=== PATIENT | male | born 1930 | race Caucasian/White ===

== ENCOUNTER 2016-11-13 12:01 | Emergency (ER) | payer OTHER, MEDICARE ==
[~2016-11-13] VITALS: Ht 182.9 cm; Wt 78.0 kg
[~2016-11-13 12:01] MED LIST: BACTRIM DS 8001 TAB PO; CARBIDOPA-LEVO1 EAC7 PO; CEFUROXIME250 M1 PO; CEPHALEXIN500 M3 PO; CIPROFLOXACIN500 M2 PO; CLEOCIN HCL300 M1 PO; COUMADIN 5 MG TA5 MG PO; ELIQUIS2.5 M1 PO; FLAGYL250 M1 PO; LOVENOX80 MG/0.8 SC; MACROBID 100 M100 MG PO; MACRODANTIN50 M1 PO; METOPROLOL SUCC25 M1 PO; MIRALAX17 GM PO; RAPAFLO8 M1 PO; SENNA-S 50 MG-81 TAB PO; SINEMET 25-1001 EACH PO; VESICARE5 M1 PO; WARFARIN SODIUM3 M1 PO
[2016-11-13 12:45] LABS: ABSOLUTE BASOPHIL COUNT 0 /CUMM (0.0-0.2); ABSOLUTE EOSINOPHIL COUNT 0.3 /CUMM (0.0-0.7); ABSOLUTE GRANULOCYTE CT 4.4 /CUMM (1.4-6.5); ABSOLUTE LYMPH COUNT 1.3 /CUMM (1.2-3.4); ABSOLUTE MONOCYTE COUNT 0.4 /CUMM (0.10-0.60); BASOPHIL % 0.2 % (0.0-2.0); EOSINOPHIL % 4.1 % (0-5); MEAN CORPUSCULAR HGB 31.5 PG (27.0-31.0); MEAN CORPUSCULAR HGB CONC 32.8 G/DL (33.0-37.0); MEAN PLATELET VOLUME 7.2 FL (7.4-10.4); PLATELET COUNT 163 /CUMM (130-400); RBC DISTRIBUTION WIDTH 13.4 % (11.5-14.5); RED BLOOD CELL CT 4.79 /CUMM (4.70-6.10); WHITE BLOOD CELL COUNT 6.4 /CUMM (4.8-10.8)
--- NOTE | 2016-11-13 12:46 | ED HEADACHE COMPLAINT ---
History of Present Illness General Chief Complaint: Headache Stated Complaint: BIBA HEADACHE Source: patient, family () Exam Limitations: unable to give history Vital Signs & Intake/Output Vital Signs & Intake/Output Vital Signs Date Time Temp Pulse Resp B/P Pulse O2 O2 Flow FiO2 Ox Delivery Rate 11/13 1432 97.1 70 18 115/64 97 11/13 1220 98.5 77 18 108/62 97 Room Air Allergies Coded Allergies: Penicillins (Intermediate, RASH 04/15/16) Reconcile Medications Apixaban (Eliquis) 2.5 MG TABLET 1 TAB PO BID BLOOD THINNER (Reported) Carbidopa/Levodopa (Sinemet 25-100 MG Tablet) 1 EACH TABLET 0.5 TAB PO FOUR TIMES A DAY DIRECTED (Reported) Metoprolol Succinate 25 MG TAB 1 TAB PO DAILY DIRECTED (Reported) Silodosin (Rapaflo) 8 MG CAPSULE 1 CAP PO AT BEDTIME INCONTINENCE (Reported) Solifenacin Succinate (Vesicare) 5 MG TABLET 1 TAB PO AT BEDTIME URINARY INCONTINENCE (Reported) Triage Note: BIBA FROM HOME, PER EMS AND , PT HAS HAD DIARRHEA X 2 DAYS, WITH DARK URINE, HEADACHE TODAY. 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 ALSO IS BED BOUND EXCEPT FOR LIFT ASSIST TO CHAIR. Triage Nurses Notes Reviewed? yes HPI: this patient is an 86-year-old male with past medical history including Parkinson's, hypertension, and urinary incontinence who presented to the emergency department today brought in by his for evaluation of headache. She reported over the last week he has had approximately 2 episodes of nonbloody diarrhea. She has also noted that his urine has been dark. She reported that today he indicated that his head was hurting. He has not had any fevers or chills. No vomiting and no other complaints. (ALEXA BREWSTER,DANILO) Past History Travel History Traveled to [place] past 21 day No Medical History Any Pertinent Medical History? 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 FH: Parkinson's disease MOTHER (HEART ATTACK AT AGE 94). FHx: uterine cancer BROTHER (PTOSIS). Asif's palsy Hx Contributory? No (DANILO LIU PA-C) Review of Systems Review of Systems Constitutional: Reports: no symptoms. Gastrointestinal/Abdominal: Reports: see HPI. Genitourinary: Reports: see HPI. Neurological/Psychological: Reports: see HPI. Comments unable to obtain full review of systems due to this patient's underlying dementia. (DANILO LIU PA-C) Physical Exam Physical Exam Cranial Nerves: normal hearing, PERRL, no facial droop. Comments: Well-developed well-nourished person in no acute distress HEENT: Normal EENT exam, head normocephalic, moist mucous membranes PERRLA bilaterally Neck: Supple, no lymphadenopathy Back: Normal inspection Cardiovascular: Regular rate and rhythm with no murmurs, rubs, or gallops Respiratory: Chest nontender. No respiratory distress. Breath sounds clear to auscultation bilaterally with no wheezes, rales, rhonchi Abdomen: Soft, nontender and nondistended. No organomegaly. No peritoneal signs. No rebound or guarding. Normoactive bowel sounds Extremity: Normal and equal pulses. No edema Neuro: Alert, cranial nerves II through XII grossly intact. Skin: No appreciable rash on exposed skin, skin is warm and dry. Psych: Mood and affect is flat Core Measures Severe Sepsis Present: No Septic Shock Present: No (DANILO LIU PA-C) Progress Differential Diagnosis: carotid dissection, cav sinus thromb, cluster [place], encephalitis, IC mass/tumor, intracranial Hem., meningitis, migraine [place], musculoskeletal pain, sinusitis, SSS thrombosis, subarach. Hem., tension [place], temporal arteritis, viral cephalgia, influenza Plan of Care: Orders Procedure Date/time Status Heart Healthy Diet 11/13 D Active LACTIC ACID 11/13 1518 Active CULTURE,URINE 11/13 1218 Active BLOOD CULTURE 11/13 1218 Active URINALYSIS 11/13 121 Active TROPONIN LEVEL 11/13 1217 Complete LIPASE 11/13 1217 Complete LACTIC ACID 11/13 1217 Complete DIRECT BILIRUBIN 11/13 1217 Complete COMPREHENSIVE METABOLIC PANEL 11/13 1217 Complete CBC WITHOUT DIFFERENTIAL 11/13 1217 Complete AMYLASE 11/13 1217 Complete EKG 11/13 1217 Active Laboratory Tests 11/13/16 1234: Anion Gap 6, Estimated GFR > 60, BUN/Creatinine Ratio 17.5, Glucose 71, Lactic Acid 2.2 H, Calcium 9.9, Total Bilirubin 0.7, Direct Bilirubin 0.4, AST 21, ALT 33, Alkaline Phosphatase 63, Troponin I < 0.01, Total Protein 7.0, Albumin 3.8, Globulin 3.2, Albumin/Globulin Ratio 1.2, Amylase 37, Lipase 38, CBC w Diff NO MAN DIFF REQ, RBC 4.79, MCV 96.0 H, MCH 31.5 H, RDW 13.4, MPV 7.2 L, Gran % 69.0, Lymphocytes % 20.0 L, Monocytes % 6.7, Eosinophils % 4.1, Basophils % 0.2 , Absolute Granulocytes 4.4, Absolute Lymphocytes 1.3, Absolute Monocytes 0.4, Absolute Eosinophils 0.3, Absolute Basophils 0, PUBS MCHC 32.8 L Microbiology 11/13 1245 BLOOD: Blood Culture - RECD 11/13 1234 BLOOD: Blood Culture - RECD 11/13 1217 URINE ROUT: Urine Culture - ORD Diagnostic Imaging: Viewed by Me: CT Scan. Discussed w/RAD: CT Scan. Radiology Impression: PATIENT: CHARLIE MOORE PRESENT AGE: 86 PATIENT ACCOUNT NO: [id number] : 31 LOCATION: [facility] ORDERING PHYSICIAN: DANILO LIU PA-C SERVICE DATE: 11/13/16-8 EXAM TYPE: CAT - CT HEAD WO IV CONTRAST EXAMINATION: CT HEAD WITHOUT CONTRAST CLINICAL INFORMATION: Evaluate for intracranial hemorrhage COMPARISON: CT head dated TECHNIQUE: Contiguous axial imaging was performed from the skull base to vertex without intravenous administration of contrast. DLP: 672.25 mGy-cm FINDINGS: There is no evidence of acute intracranial hemorrhage or territorial infarction. No abnormal mass effect or midline shift is seen. Medeiros to white matter differentiation is well preserved. No extra-axial fluid collections are identified. Prominence of the ventricles and sulci compatible with age-related involutional changes.. Periventricular and subtle subcortical white matter low- attenuation compatible with microvascular ischemic disease. The osseous structures and soft tissues are normal. Polypoid mucosal thickening noted again within the ethmoid air cells. Mastoid air cells are well aerated. Deviated nasal septum with convexity to the left. Minor extra calvarial soft tissue swelling noted in the posterior superior aspect somewhat similar to the previous examination. IMPRESSION: No acute intracranial pathology. Age-related atrophy. Stable microvascular ischemic disease. Ethmoid sinus disease. DICTATED BY: CLEMENTINA SILVA MD DATE/TIME DICTATED:11/13/161317 FIRER WATERTENDER:WO[place] DATE/ TIME TRANSCRIBED:11/13/161317 CONFIDENTIAL, DO NOT COPY WITHOUT APPROPRIATE AUTHORIZATION. <Electronically signed in Other Vendor System> SIGNED BY: CLEMENTINA SILVA MD 11/13/16 5965 Initial ED EKG: sinus tachycardia, 90 bpm, premature ventricular complex Comments: 11/13/2016 4:18:45 PM: RN informed me that she was unable to obtain a urine sample with straight catheterization. The RN informed me that the patient's diaper was wet by the time she got to him. The patient's is requesting to try to obtain a urine sample again she believes that this is what the problem is. He has had urinary tract infection the past. The patient's is going to have him follow-up with Dr. Perez, urologist. 11/13/2016 4:51:25 PM: Unsuccessful secondary attempt at straight catheterization. The patient's is refusing prophylactic antibiotics and stating that she would like to follow up with the patient's urologist first. She would like to wait in the emergency department until this patient's food tray arrives for him to eat. (DANILO LIU PA-C) Departure Departure Disposition: HOME OR SELF CARE Condition: Stable Clinical Impression Primary Impression: Headache Qualifiers: Headache type: unspecified Headache chronicity pattern: unspecified pattern Intractability: not intractable Qualified Code: R51 - Headache Referrals: JAYDEN WARREN MD (PCP/Family) Additional Instructions: Please follow-up with your urologist as directed. Return for any worsening symptoms or concerns. Departure Forms: Customer Survey General Discharge Information (DANILO LIU PA-C) PA/NEW ORDER CLERK Co-Sign Statement Statement: ED Attending supervision documentation- [X] I saw and evaluated the patient. I have also reviewed all the pertinent lab results and diagnostic results. I agree with the findings and the plan of care as documented in the PA's/NEW ORDER CLERK's documentation. [X] I have reviewed the ED Record and agree with the PA's/NEW ORDER CLERK's documentation. [] Additions or exceptions (if any) to the PAs/NEW ORDER CLERK's note and plan are summarized below: [] (TITUS PENA,JOSE DE JESUS)
--- NOTE | 2016-11-13 13:27 | CT SCAN REPORT ---
EXAMINATION: CT HEAD WITHOUT CONTRAST CLINICAL INFORMATION: Evaluate for intracranial hemorrhage COMPARISON: CT head dated 04/15/2016 TECHNIQUE: Contiguous axial imaging was performed from the skull base to vertex without intravenous administration of contrast. DLP: 672.25 mGy-cm FINDINGS: There is no evidence of acute intracranial hemorrhage or territorial infarction. No abnormal mass effect or midline shift is seen. Medeiros to white matter differentiation is well preserved. No extra-axial fluid collections are identified. Prominence of the ventricles and sulci compatible with age-related involutional changes.. Periventricular and subtle subcortical white matter low-attenuation compatible with microvascular ischemic disease. The osseous structures and soft tissues are normal. Polypoid mucosal thickening noted again within the ethmoid air cells. Mastoid air cells are well aerated. Deviated nasal septum with convexity to the left. Minor extra calvarial soft tissue swelling noted in the posterior superior aspect somewhat similar to the previous examination. IMPRESSION: No acute intracranial pathology. Age-related atrophy. Stable microvascular ischemic disease. Ethmoid sinus disease.
[2016-11-13 16:30] VITALS: BP 130/70
== END 2016-11-13 18:00 ==
LOC: ERH 12:01
PROVIDERS: Physician Assistant
DX: R51 Headache (principal); R19.7 Diarrhea, unspecified; R39.9 Unspecified symptoms and signs involving the genitourinary system
CPT/HCPCS: 87040; 87086; 93005; 93010

== ENCOUNTER 2017-01-31 22:32 | Emergency (ER) | payer OTHER, MEDICARE ==
[~2017-01-31] VITALS: Ht 177.8 cm; Wt 77.1 kg
--- NOTE | 2017-01-31 23:20 | ED AMS/SEIZURE/WEAK/DIZZY ---
History of Present Illness General Chief Complaint: General Adult Stated Complaint: PT MAR WHEN HE URINATED, Source: family Exam Limitations: no limitations Vital Signs & Intake/Output Vital Signs & Intake/Output Vital Signs Date Time Temp Pulse Resp B/P B/P Pulse O2 O2 Flow FiO2 Mean Ox Delivery Rate 02/01 0130 97.2 112 20 112/71 98 Room Air 01/31 2318 98.5 78 18 110/64 96 Room Air ED Intake and Output 02/01 0000 01/31 1200 Intake Total Output Total Balance Patient 170 lb Weight Weight Reported by Patient Measurement Method Allergies Coded Allergies: Penicillins (Intermediate, RASH 04/15/16) Reconcile Medications Apixaban (Eliquis) 2.5 MG TABLET 1 TAB PO BID BLOOD THINNER (Reported) Carbidopa/Levodopa (Sinemet 25-100 MG Tablet) 1 EACH TABLET 0.5 TAB PO FOUR TIMES A DAY DIRECTED (Reported) Ciprofloxacin HCl (Cipro) 500 MG TABLET 1 TAB PO BID urinary tract infection Metoprolol Succinate 25 MG TAB 1 TAB PO DAILY DIRECTED (Reported) Silodosin (Rapaflo) 8 MG CAPSULE 1 CAP PO AT BEDTIME INCONTINENCE (Reported) Solifenacin Succinate (Vesicare) 5 MG TABLET 1 TAB PO AT BEDTIME URINARY INCONTINENCE (Reported) Triage Nurses Notes Reviewed? yes Onset: Gradual Duration: day(s): Timing: recent history Injury Environment: home Severity: moderate Modifying Factors: Improves With: rest. Associated Symptoms: weakness HPI: 86 yo gentleman, nonverbal, with supranuclear palsy, presents with painful urination, burning, and increased fatigue. His notes that he had a temperature of 100 at home. He has been and eating and drinking well. He has had no cough, phlegm, dyspnea. Past History Travel History Traveled to [place] past 21 day No Medical History Any Pertinent Medical History? 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 FH: Parkinson's disease MOTHER (HEART ATTACK AT AGE 94). FHx: uterine cancer BROTHER (PTOSIS). Asif's palsy Hx Contributory? No Review of Systems Review of Systems Constitutional: Reports: no symptoms. EENTM: Reports: no symptoms. Respiratory: Reports: no symptoms. Cardiovascular: Reports: no symptoms. GI: Reports: no symptoms. Genitourinary: Reports: no symptoms. Musculoskeletal: Reports: no symptoms. Skin: Reports: no symptoms. Neurological/Psychological: Reports: no symptoms. Hematologic/Endocrine: Reports: no symptoms. Immunologic/Allergic: Reports: no symptoms. All Other Systems: Reviewed and Negative Physical Exam Physical Exam General Appearance: well developed/nourished, no apparent distress, lethargic Head: atraumatic Eyes: Bilateral: normal appearance. Ears, Nose, Throat: normal pharynx, normal ENT inspection Neck: normal inspection, supple, full range of motion Respiratory: normal breath sounds, chest non-tender, no respiratory distress, quiet respiration, lungs clear Cardiovascular: regular rate/rhythm Gastrointestinal: normal bowel sounds, soft, non-tender, no organomegaly Back: normal inspection Extremities: normal range of motion Neurologic/Psych: lethargic, but responsive to verbal stimuli. Skin: intact, normal color, warm/dry Core Measures ACS in differential dx? No CVA/TIA Diagnosis: No Severe Sepsis Present: No Septic Shock Present: No Progress Differential Diagnosis: UTI/pyelo, weakness vs other. Plan of Care: Orders Procedure Date/time Status URINALYSIS 01/31 2235 Complete LIPASE 01/31 2235 Complete COMPREHENSIVE METABOLIC PANEL 01/31 2235 Complete CBC WITHOUT DIFFERENTIAL 01/31 2235 Complete AMYLASE 01/31 2235 Complete Laboratory Tests 02/01/17 0101: Urine Color YEL, Urine Clarity HAZY H, Urine pH 6.0, Ur Specific [place] 1.020, Urine Protein NEG, Urine Ketones NEG, Urine Nitrite NEG, Urine Bilirubin NEG, Urine Urobilinogen 0.2, Ur Leukocyte Esterase LARGE H, Ur Microscopic SEDIMENT EXAMINED, Urine RBC RARE, Urine WBC 25-50 H, Ur Epithelial Cells RARE, Urine Bacteria MANY H, Urine Hemoglobin NEG, Urine Glucose NEG 01/31/17 2341: Anion Gap 10, Estimated GFR > 60, BUN/Creatinine Ratio 21.1, Glucose 93, Calcium 9.6, Total Bilirubin 0.7, AST 22, ALT 22, Alkaline Phosphatase 65, Total Protein 7.6, Albumin 4.2, Globulin 3.4, Albumin/Globulin Ratio 1.2, Amylase 45, Lipase 40, CBC w Diff NO MAN DIFF REQ, RBC 4.81, MCV 95.6 H, MCH 31.0, RDW 13.7, MPV 7.5, Gran % 72.7, Lymphocytes % 16.7 L, Monocytes % 7.2, Eosinophils % 3.0, Basophils % 0.4, Absolute Granulocytes 6.9 H, Absolute Lymphocytes 1.6, Absolute Monocytes 0.7 H, Absolute Eosinophils 0.3, Absolute Basophils 0, PUBS MCHC 32.5 L Initial ED EKG: none Departure Departure Disposition: HOME OR SELF CARE Condition: Stable Clinical Impression Primary Impression: Urinary tract infection Referrals: BRIANA PENA,JAYDEN Mi (PCP/Family) Departure Forms: Customer Survey General Discharge Information Prescriptions: Current Visit Scripts Ciprofloxacin HCl (Cipro) 1 TAB PO BID #20 TAB Comments 02/01/17, 2am... pt stable in ED... has uti based on labs and history... His feels comfortable taking him home... He will go home on cipro. Close follow up advised.
[2017-02-01 00:04] LABS: ABSOLUTE BASOPHIL COUNT 0 /CUMM (0.0-0.2); ABSOLUTE EOSINOPHIL COUNT 0.3 /CUMM (0.0-0.7); ABSOLUTE GRANULOCYTE CT 6.9 /CUMM (1.4-6.5); ABSOLUTE LYMPH COUNT 1.6 /CUMM (1.2-3.4); ABSOLUTE MONOCYTE COUNT 0.7 /CUMM (0.10-0.60); BASOPHIL % 0.4 % (0.0-2.0); GRANULOCYTE % 72.7 % (42.2-75.2); MEAN CORPUSCULAR HGB CONC 32.5 G/DL (33.0-37.0); MEAN CORPUSCULAR VOLUME 95.6 FL (80.0-94.0); MEAN PLATELET VOLUME 7.5 FL (7.4-10.4); PLATELET COUNT 176 /CUMM (130-400); RBC DISTRIBUTION WIDTH 13.7 % (11.5-14.5); RED BLOOD CELL CT 4.81 /CUMM (4.70-6.10); WHITE BLOOD CELL COUNT 9.5 /CUMM (4.8-10.8)
[2017-02-01 01:30] VITALS: BP 112/71
[2017-02-01] MEDS ORDERED: CIPRO500 M1 PO ×2 (01:46→01:49)
== END 2017-02-01 01:59 ==
LOC: ERH 22:32
PROVIDERS: Pediatrics
DX: N39.0 Urinary tract infection, site not specified (principal)
CPT/HCPCS: 81001

== ENCOUNTER 2017-10-21 17:55 | Inpatient (IN) | payer OTHER ==
[~2017-10-21] VITALS: Ht 177.8 cm; Wt 71.8 kg
[~2017-10-21 17:55] MED LIST changes: +CIPRO500 M1 PO
--- NOTE | 2017-10-21 19:26 | ED UPPER/LOWER EXTREMITY COMPL ---
History of Present Illness General Chief Complaint: General Adult Stated Complaint: SENT OVER FROM US FOR BLOOD CLOT IN RT LEG Source: family, old records, EMS Exam Limitations: supranuclear palsy,unable to speak Vital Signs & Intake/Output Vital Signs & Intake/Output Vital Signs Date Time Temp Pulse Resp B/P B/P Pulse O2 O2 Flow FiO2 Mean Ox Delivery Rate 10/21 2305 97.6 72 18 131/65 99 Room Air 10/21 1759 96.6 71 18 125/75 94 Room Air Room Air Allergies Coded Allergies: Penicillins (Intermediate, RASH 04/15/16) Reconcile Medications Apixaban (Eliquis) 2.5 MG TABLET 1 TAB PO BID BLOOD THINNER (Reported) Carbidopa/Levodopa (Sinemet 25-100 MG Tablet) 1 EACH TABLET 0.5 TAB PO FOUR TIMES A DAY DIRECTED (Reported) Ciprofloxacin HCl (Cipro) 500 MG TABLET 1 TAB PO BID urinary tract infection Metoprolol Succinate 25 MG TAB 1 TAB PO DAILY DIRECTED (Reported) Risperidone 0.5 MG TABLET 1 TAB PO QPM ANXIETY/SLEEP (Reported) Silodosin (Rapaflo) 8 MG CAPSULE 1 CAP PO AT BEDTIME INCONTINENCE (Reported) Solifenacin Succinate (Vesicare) 5 MG TABLET 1 TAB PO AT BEDTIME URINARY INCONTINENCE (Reported) Triage Note: PT TO ED WITH FOR RIGHT LOWER LEG/KNEE AREA SWELLING, HAS HX OF DVT AND IS CURRENTLY ON ELIQUIST. PT IN NON VERBAL, WHEELCHAIR BOUND. Triage Nurses Notes Reviewed? yes HPI: Patient presents for evaluation of a right leg deep venous thrombosis noted today on an ultrasound. The patient is currently taking Eliquis for a history of right lower extremity blood clot. Patient himself is unable to provide history the history is limited as to the patient's current symptoms. He generally lies in bed or sits in a wheelchair. No history of malignancy. Past History Travel History Traveled to [place] past 21 day No Medical History Any Pertinent Medical History? 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 FH: Parkinson's disease MOTHER (HEART ATTACK AT AGE 94). FHx: uterine cancer BROTHER (PTOSIS). Asif's palsy Hx Contributory? No Review of Systems Review of Systems Constitutional: Reports: no symptoms. EENTM: Reports: no symptoms. Respiratory: Reports: no symptoms. Cardiovascular: Reports: see HPI. Gastrointestinal/Abdominal: Reports: no symptoms. Genitourinary: Reports: no symptoms. Musculoskeletal: Reports: no symptoms. Skin: Reports: no symptoms. Neurological/Psychological: Reports: no symptoms. Hematologic/Endocrine: Reports: no symptoms. Immunological: Reports: no symptoms. All Other Systems: Reviewed and Negative Physical Exam Physical Exam General Appearance: sEE BELOW Comments: Gen.: Well-nourished, well-developed, no acute respiratory distress. Head: Normocephalic, atraumatic. Eyes: Normal inspection bilaterally Ears: Normal inspection bilaterally Nose: Normal inspection Throat/mouth : Moist mucosa Neck: Supple, full range of motion, no goiter Heart: Regular rate and rhythm Lungs: Quiet respirations Back: Normal range of motion Extremities: Right lower extremity: Mild swelling of the calf with no other acute findings. Neurologic: Cranial nerves grossly intact, speech is clear Skin: warm and dry Psychiatric: Calm, cooperative, no apparent delusions or hallucinations Progress Differential Diagnosis: cellulitis, CHF, contusion, DVT, gout, septic arthritis, sprain Plan of Care: Orders Procedure Date/time Status Regular Diet 10/22 B Active Patient Data 10/21 2237 Active Misc Message 10/21 2234 Active ED Holding Orders 10/21 2234 Active Admit to inpatient 10/21 2234 Active Vital Signs 10/21 2234 Active Code Status 10/21 2234 Active CBC WITHOUT DIFFERENTIAL 10/21 2135 Complete BASIC METABOLIC PANEL 10/21 2135 Complete Intake & Output 10/21 184 Active Laboratory Tests 10/21/17 2100: Anion Gap 11, Estimated GFR > 60, BUN/Creatinine Ratio 27.5 H, Glucose 71, Calcium 9.5, CBC w Diff NO MAN DIFF REQ, RBC 4.71, MCV 95.5 H, MCH 30.9, MCHC 32.4 L, RDW 13.7, MPV 7.7, Gran % 61.1, Lymphocytes % 26.6, Monocytes % 8.6, Eosinophils % 3.3, Basophils % 0.4, Absolute Granulocytes 4.1, Absolute Lymphocytes 1.8, Absolute Monocytes 0.6, Absolute Eosinophils 0.2, Absolute Basophils 0 Comments: 10/21/2017 7:37:07 PM patient's case discussed with Dr. Monreal who recommends the patient be admitted to the hospital for treatment with Lovenox and Coumadin (these may be started immediately). Departure Departure Disposition: STILL A PATIENT Condition: Stable Clinical Impression Primary Impression: DVT (deep venous thrombosis) Qualifiers: DVT location: lower extremity Affected thrombotic vein of extremity : femoral Chronicity: chronic Laterality: right Qualified Code: I82.511 - Chronic embolism and thrombosis of right femoral vein Referrals: Norman Nikc MD (PCP/Family) Departure Forms: Customer Survey General Discharge Information Admission Note Spoke With: Keon Farrell MD Documentation of Exam: Documentation of any treatments & extenuating circumstances including Concerns Regarding Discharge (functional status, medication knowledge or non-compliance, living conditions, etc.) that warrant an admission rather than observation: Patient has a right lower extremity DVT despite treatment with Eliquis as an outpatient. The patient has failed outpatient management and now requires hospitalization for transition over to Coumadin with bridging anticoagulation with Lovenox. Patient has a history of prior pulmonary embolism and his DVT places him at high risk of another PE. Given the need to transition over to Coumadin I feel this patient will require multiple day hospitalization given the often inconsistent response to Coumadin during the initial few days of treatment. In addition to the above vascular consultation should be considered given the patient's persistent DVT.
[2017-10-21 21:49] LABS: ABSOLUTE BASOPHIL COUNT 0 /CUMM (0.0-0.2); ABSOLUTE EOSINOPHIL COUNT 0.2 /CUMM (0.0-0.7); ABSOLUTE GRANULOCYTE CT 4.1 /CUMM (1.4-6.5); ABSOLUTE LYMPH COUNT 1.8 /CUMM (1.2-3.4); ABSOLUTE MONOCYTE COUNT 0.6 /CUMM (0.10-0.60); BASOPHIL % 0.4 % (0.0-2.0); EOSINOPHIL % 3.3 % (0-5); GRANULOCYTE % 61.1 % (42.2-75.2); MEAN CORPUSCULAR HGB 30.9 PG (27.0-31.0); MEAN CORPUSCULAR HGB CONC 32.4 G/DL (33.0-37.0); MEAN CORPUSCULAR VOLUME 95.5 FL (80.0-94.0); MEAN PLATELET VOLUME 7.7 FL (7.4-10.4); PLATELET COUNT 192 /CUMM (130-400); RBC DISTRIBUTION WIDTH 13.7 % (11.5-14.5); RED BLOOD CELL CT 4.71 /CUMM (4.70-6.10); WHITE BLOOD CELL COUNT 6.7 /CUMM (4.8-10.8)
[2017-10-21] MEDS ORDERED: RISPERIDONE0.5 M1 PO (23:11)
--- NOTE | 2017-10-22 01:44 | History & Physical ---
Della Tellez MD 10/22/17 0144: General Information and HPI Statement: I have seen and personally examined CHARLIE MOORE and documented this H&P. The patient is a 87 year old M who presented with a patient stated chief complaint of failure of anticoagulation for DVT Source of Information: family, old records Exam Limitations: unable to give history History of Present Illness: Patient is an 87-year-old male with a past medical history significant for chronic DVTs, IVC filter placed in 2011, supranuclear palsy, dementia, hypertension, hyperlipidemia, A. fib status post pacemaker that was sent over to us from ultrasound for right leg DVT/failure of anticoagulation. The patient is with his who his his primary statistical methods professor. The patient is noncommunicative and does not walk at baseline. Today the patient was at his primary care physician Dr. Nick's office when he was noted to have a "bruising" behind his knee since Friday and a swollen right leg that started today at 2 PM. He was sent immediately by Dr. Nick for an ultrasound. Patient does have a history of DVTs and pulmonary embolism and at one time was on Coumadin, switched to Eliquis 2.5 mg twice a day several years back. Patient also has an IVC placed. This is the first time the patient has had failure of Eliquis, last DVT 3 years ago. Patient has had DVTs in both legs. The patient is immobile at baseline but has no history of cancer. The patient has seen Dr. Sue for vascular in the past- he placed his IVC in 2011. Patient follows with crutching contractor Makr Alex for his A. fib. Patient has no history of smoking. The patient has swallowing issues at baseline and requires pured food with thickened liquids. Patient has a living will and would like to be DNR/DNI. Allergies/Medications Allergies: Coded Allergies: Penicillins (Intermediate, RASH 04/15/16) Home Med list Apixaban (Eliquis) 2.5 MG TABLET 1 TAB PO BID BLOOD THINNER (Reported) Carbidopa/Levodopa (Sinemet 25-100 MG Tablet) 1 EACH TABLET 0.5 TAB PO FOUR TIMES A DAY DIRECTED (Reported) Metoprolol Succinate 25 MG TAB 0.5 TAB PO BID HTN (Reported) Risperidone 0.5 MG TABLET 1 TAB PO QPM ANXIETY/SLEEP (Reported) Silodosin (Rapaflo) 8 MG CAPSULE 1 CAP PO AT BEDTIME INCONTINENCE (Reported) Solifenacin Succinate (Vesicare) 5 MG TABLET 1 TAB PO AT BEDTIME URINARY INCONTINENCE (Reported) Past History Travel History Traveled to [place] past 21 day No Medical History Neurological: dementia, SUPRA NUCLEAR PALSY EENT: NONE Cardiovascular: hypertension, hyperlipidemia Respiratory: NONE Gastrointestinal: NONE Hepatic: NONE Renal: urinary incontinence, uti Musculoskeletal: NONE, NON AMBULATORY Psychiatric: NONE Endocrine: NONE Blood Disorders: DVT, PE Cancer(s): NONE PROGRAM ADVISOR/Reproductive: NONE, UTI History of MRSA: No History of VRE: No History of CDIFF: No Surgical History Surgical History: non-contributory Past Family/Social History Family History Relations & Conditions if any FATHER (HEART ATTACK AT AGE 88). FH: Parkinson's disease MOTHER (HEART ATTACK AT AGE 94). FHx: uterine cancer BROTHER (PTOSIS). Asif's palsy Psychosocial History Who Do You Live With? spouse Services at Home: Nursing Primary Language: Guamanian ETOH Use: denies use Illicit Drug Use: denies illicit drug use Functional Ability ADLs Needs Assist: dressing, eating, toileting, bathing. Ambulation: Rey lift IADLs Needs Assist: shopping, housework, finances, food prep, telephone, transportation, medication admin. Review of Systems Review of Systems Constitutional: Reports: no symptoms (patient not communicative). Exam & Diagnostic Data Last 24 Hrs of Vital Signs/I&O Vital Signs Date Time Temp Pulse Resp B/P B/P Pulse O2 O2 Flow FiO2 Mean Ox Delivery Rate 10/22 0225 97.2 69 22 116/62 98 10/22 0151 Room Air 10/22 0104 97.4 72 18 127/68 99 Room Air 10/21 2305 97.6 72 18 131/65 99 Room Air 10/21 1759 96.6 71 18 125/75 94 Room Air Room Air Intake & Output 10/22 0800 10/22 0000 10/21 1600 Intake Total Output Total Balance Patient 158 lb 160 lb Weight Weight Bed scale Reported by Patient Measurement Method Physical Exam General Appearance Alert, Cooperative, No Acute Distress Skin No Rashes, No Breakdown, No Significant Lesion Skin Temp/Moisture Exam: Warm/Dry Sepsis Skin Exam (color): Normal for Ethnicity Cardiovascular Normal S1, Normal S2, No Murmurs Lungs Clear to Auscultation Abdomen Normal Bowel Sounds, Soft Extremities No Cyanosis, No Edema, Normal Pulses, No Tenderness/Swelling Vascular Normal Pulses, Pulses Symmetrical Assessment/Plan Assessment: Patient is an 87-year-old male with a past medical history significant for chronic DVTs, IVC filter placed in 2011, supranuclear palsy, dementia, hypertension, hyperlipidemia, A. fib status post pacemaker, BPH that was sent over to us from ultrasound for right leg DVT/failure of anticoagulation. Patient does have a history of DVTs and pulmonary embolism and at one time was on Coumadin, switched to Eliquis 2.5 mg twice a day several years back. Patient also has an IVC placed. This is the first time the patient has had failure of Eliquis, last DVT 3 years ago. Patient has had DVTs in both legs. The patient is immobile at baseline but has no history of cancer, never smoked. Patient has no pulmonary symptoms today, no shortness of breath. In the ED vitals were found to be 97.2 temperature, pulse rate 69, respiratory rate 22, blood pressure 116/62, 98% oxygen saturation on room air. Pertinent labs were WBC 6.7, hemoglobin 14.6, platelets 192, normal creatinine. Doppler ultrasound of the right lower extremity showed occlusive DVT within the right common femoral vein. Plan DVT failed anticoagulation -We will consult vascular surgery as patient has proven occlusive vascular disease currently. -We will switch patient from Eliquis 2.5 twice a day to Coumadin 5 mg with bridge of Lovenox 100 mg subcutaneously (1.5mg/kg daily) -PT/INR follow-ups -EKG -No Alps as patient has confirmed DVT and this could cause dislodging of the clot -We will do an x-ray of the abdomen to evaluate if IVC filter has moved Chronic medical problems -Oxybutynin for BPH and urinary retention -Risperidone for psychiatric issues including anxiety, sleep -Sinemet for Parkinson disease -Metoprolol 12.5 mg twice a day for blood pressure -Pain control with Tylenol 650 for mild pain, Motrin for moderate pain, Vicodin for severe pain Heart healthy diet with pured solids and thickened liquids Patient is DNR/DNI As Ranked By This Provider Problem List: 1. DVT (deep venous thrombosis) Qualifiers DVT location: lower extremity Affected thrombotic vein of extremity: femoral Chronicity: chronic Laterality: right Qualified Code: I82.511 - Chronic embolism and thrombosis of right femoral vein 2. History of DVT (deep vein thrombosis) 3. Atrial fibrillation Core Measures/Misc (05/11) Acute Coronary Syndrome ACS Diagnosis: No Congestive Heart Failure Congestive Heart Failure Diagnosis No Cerebrovascular Accident CVA/TIA Diagnosis: No VTE (View Protocol) VTE Risk Factors VTE (Previous) No Mechanical VTE Prophylaxis d/t DVT (suspected/known) No VTE Pharm Prophylaxis d/t NA PharmProphylax ordered Sepsis (View protocol) Sepsis Present: No Godfrey Ponce 10/22/17 0230: Resident Review Statement Resident Statement: examined this patient, discussed with internal communications specialist, agreed with internal communications specialist, discussed with family, reviewed EMR data (avail), discussed with nursing , discussed with case mgmt, reviewed images, amended to note Other Findings: Patient is an 87-year-old male with medical history significant for recurrent DVTs, IVC filter placed in 2011, supranuclear palsy, dementia, hypertension, hyperlipidemia, A. fib on Eliquis status post pacemaker he was sent over to us by his primary care doctor due to ultrasound results showed right leg DVT. The patient is with his who his his primary statistical methods professor. The patient is noncommunicative and does not walk at baseline. stated that he has some bruises and swelling of his right lower extremity since the past 3-4 days due to that she contact Dr. louis will recommend to obtain ultrasound for further assessment giving the patient underlying history. Emergency Department stuff discuss with the vascular surgeon recommend the patient to be admitted and bridge with Lovenox and Coumadin. Physical examination, lab and imaging as above. Problem list: -Occlusive right common femoral DVT Plan: -Admit to general medicine floor -Vitals every shift -Continue Lovenox 1.5 mg/kg daily dosing -Continue warfarin -Check INR daily -Vascular surgery consult in a.m. -Hold off Eliquis otherwise continue home medication -Pure and nectar for his diet. -Pain pathway -DVT prophylaxis on Lovenox and warfarin -DNI DNR according to his Keon Farrell 10/22/17 0309: Attending MD Review Statement Attending Statement Attending MD Statement: examined this patient, discuss w/resident/PA/BLENDING TANK TENDER, agreed w/resident/PA/BLENDING TANK TENDER, discussed with family, reviewed EMR data (avail), reviewed images, amended to note Attending Assessment/Plan: CC: DVT PMH: Parkinson's disease, supranuclear palsy, BPH, HTN, A. fib S/P pacer, DVT/PE S/P IVC filter Patient was sent in ER by primary care physician for DVT in right leg. Patient is bedbound secondary to Parkinson's disease, supranuclear palsy, ( is caregiver along with health aides at home) and has history of recurrent DVT and PE. Patient was started on Eliquis on June 2016 for convenience of dosing. But last few days noticed that the right lower extremity was more swollen and there was mild redness behind his right knee so patient was seen by primary care physician and DVT Doppler was obtained which showed occlusive DVT so patient was suggested to go to ER. Given that patient is nonverbal ROS is limited Vitals: T max 97.6, pulse 70s, RR 18, blood pressure 09/17/1974, saturating 94% on room air On exam: Nonverbal, follows few instruction, grunting, cooperative, no acute distress, neck supple, JVD normal, no lymphadenopathy, right lower extremity edema, redness behind right knee, dilated superficial veins on right leg CVS: S1 -S2, RRR. RS: Difficult to auscultate because of grunting. Abdomen: Soft, NT, ND , bowel sounds present. Right lower extremity DVT Doppler: Occlusive deep venous thrombosis within the right common femoral vein. Assessment and plan 87-year-old male with extensive past medical history, bedbound secondary to Parkinson's disease and supranuclear drowsy, history of recurrent DVT and PE, S/ P IVC filter, currently on Eliquis presented in ER for occlusive DVT in the right common femoral vein. The DVT developed even on Eliquis, probably secondary to treatment failure and patient will require warfarin and bridging with Lovenox or heparin. Vascular surgery was called from ER who suggested the same. Patient is currently not tachycardic or hypoxic, does not appear in acute distress, low probability of significant PE. + Occlusive right common femoral DVT + History of Parkinson's disease, supranuclear palsy, BPH, HTN, A. fib S/P pacer , DVT/PE S/P IVC filter - Admit to general medicine - Continue Lovenox 1.5 mg/kg daily dosing - Continue warfarin - Check INR - Vascular surgery consult in a.m. - Patient's may require education regarding Lovenox injections for bridging at home
[2017-10-22 02:25] VITALS: BP 116/62
--- NOTE | 2017-10-22 03:11 | Admission Certification ---
Admission Certification Certification Statement - As attending physician, I certify that at the time of - admission, based on clinical presentation, severity of - symptoms, need for further diagnostic testing and - therapeutic interventions, and risk of adverse outcomes - without in-hospital treatment, in my clinical assessment, - this patient requires an acute hospital stay for a minimum - of two nights or longer. I have also considered psychsocial - factors such as support system, advanced age, financial - issues, cognitive issues, and failed out-patient treatments, - past re-admission history, safety of patient, and lack of - compliance as applicable. Specific rationale supporting this admission is: Occlusive right lower extremity DVT
[2017-10-22 07:24] VITALS: BP 124/66
[2017-10-22 08:26] LABS: PT 12.6 SEC (9.4-12.5)
[2017-10-22 08:37] LABS: ABSOLUTE BASOPHIL COUNT 0 /CUMM (0.0-0.2); ABSOLUTE EOSINOPHIL COUNT 0.2 /CUMM (0.0-0.7); ABSOLUTE GRANULOCYTE CT 3.3 /CUMM (1.4-6.5); ABSOLUTE LYMPH COUNT 1.8 /CUMM (1.2-3.4); ABSOLUTE MONOCYTE COUNT 0.5 /CUMM (0.10-0.60); BASOPHIL % 0.4 % (0.0-2.0); EOSINOPHIL % 4.2 % (0-5); GRANULOCYTE % 56.5 % (42.2-75.2); HEMATOCRIT 43.8 % (42-52); MEAN CORPUSCULAR HGB 31.7 PG (27.0-31.0); MEAN CORPUSCULAR HGB CONC 33.2 G/DL (33.0-37.0); MEAN CORPUSCULAR VOLUME 95.5 FL (80.0-94.0); MEAN PLATELET VOLUME 7.2 FL (7.4-10.4); PLATELET COUNT 176 /CUMM (130-400); RBC DISTRIBUTION WIDTH 13.5 % (11.5-14.5); RED BLOOD CELL CT 4.59 /CUMM (4.70-6.10); WHITE BLOOD CELL COUNT 5.9 /CUMM (4.8-10.8)
[2017-10-22 10:17] VITALS: BP 130/68
--- NOTE | 2017-10-22 10:31 | RADIOLOGY REPORT ---
EXAMINATION: XR PORTABLE ABDOMEN CLINICAL INFORMATION: IVC filter placement. COMPARISON: None TECHNIQUE: AP portable view of the abdomen. FINDINGS: There is partial visualization of a pacemaker wire in right ventricle. An IVC filter is located at the level of L3-L4. Air is seen throughout the entire GI tract. IMPRESSION: The IVC filter is located the level L3-L4.
--- NOTE | 2017-10-22 10:51 | Event Note ---
Event Note Event Note: S: Personally reviewed the ultrasound imaging of most recent and previous lower extremity Doppler ultrasound for DVT, Dr. Maciel radiology. B: Patient was admitted overnight due to outpatient ultrasound revealing occlusive DVT of the right common femoral vein. Patient has a history of recurrent DVTs with IVC filter in place, on outpatient Eliquis. Patient is nonverbal at baseline and bedbound, unable to give any history of worsening symptoms, per the patient was seen by PCP due to worsening right lower extremity swelling with new ecchymosis on the posterior distal thigh. AR: Patient review of radiology there was no conclusive evidence to show that this was a new DVT or worsening of the previous DVT. The case was discussed over the phone with Dr. Musa, vascular surgery, who agrees with the medical symptoms assessment that this does not likely represent a failure of anticoagulation therapy. He will be continued on his home dose of Eliquis and discharged. Of note, patient is a functional quadraplegic, total care patient, nonverbal at baseline and bedbound requiring karen lift at home. He has required feeding assist on this admission.
--- NOTE | 2017-10-22 11:04 | Patient Discharge Instructions ---
Discharge Instructions General Discharge Information You were seen/treated for: Leg swelling Special Instructions: Please follow up with your primary care doctor within 1-2 weeks. Continue taking all medications as directed. Watch for significant worsening lower extremity swelling. Call your doctor or return the ER if there is worsening of symptoms including leg swelling, skin discoloration, shortness of breath. Acute Coronary Syndrome Inclusion Criteria At DC or during hospital stay patient has or had the following: ACS DIAGNOSIS No Discharge Core Measures Meds if any: Prescribed or Continued at Discharge Meds if any: NOT Prescribed or Continued at Discharge Congestive Heart Failure Inclusion Criteria At DC or during hospital stay patient has or had the following: CHF DIAGNOSIS No Discharge Core Measures Meds if any: Prescribed or Continued at Discharge Meds if any: NOT Prescribed or Continued at Discharge Cerebrovascular accident Inclusion Criteria At DC or during hospital stay patient has or had the following: CVA/TIA Diagnosis No Discharge Core Measures Meds if any: Prescribed or Continued at Discharge Meds if any: NOT Prescribed or Continued at Discharge Venous thromboembolism Inclusion Criteria VTE Diagnosis Yes VTE Type Deep Venous Thrombosis VTE Confirmed by (Test) UNILATERAL VENOUS DOPPLER Discharge Core Measures - Per Current guidelines, there needs to be overlap - treatment for the first 5 days of Warfarin therapy. - If discharged on Warfarin prior to 5 days of - overlap therapy, the patient will need to be - assessed for post discharge needs including - *Post discharge parental anticoagulation - *Warfarin and/or parental anticoagulation education - *Follow up date to check INR post discharge At least 5 days overlap therapy as Inpatient Yes Meds if any: Prescribed or Continued at Discharge Note: Overlap Therapy is Warfarin and Anticoagulant Meds if any: NOT Prescribed or Continued at Discharge
--- NOTE | 2017-10-23 15:09 | Discharge Summary ---
Visit Information Visit Dates Admission Date: 10/21/17 Discharge Date: 10/22/17 Hospital Course Course Attending Physician: Lulú Mcgarry MD Primary Care Physician: Norman Nick MD Hospital Course: Patient is an 87-year-old male with a PMH significant for chronic DVTs status post IVC filter placement in 2011, supranuclear palsy, dementia, HTN, HLD, A. fib status post pacemaker placement who was referred to the [facility] ED after an outpatient ultrasound revealed DVT of the right common femoral vein. Patient had a several day history of ecchymosis of the posterior right lower extremity and increased swelling. #Right lower extremity swelling and ecchymosis The ultrasound images from the outpatient ultrasound as well as previous imaging including ultrasound and CT scans were reviewed with the on-call interventional radiologist Dr. Maciel. It was concluded based on the imaging studies that it was unlikely that these new symptoms represented a new or worsening of the chronic DVT that had been in the right common femoral vein. Given the new onset ecchymosis and swelling this most likely represented new trauma. While the patient was admitted he attempted unsafe ambulation requiring a patient safety monitor and upon discussion with the patient's she stated that he has hard metal rails on the beds and it is possible that he suffered a traumatic injury to the leg at home. Patient was also discussed with Dr. Musa, vascular surgery, who agreed with the plan to discharge and continue Eliquis. #Chronic medical problems including HTN, HLD, A. fib, supranuclear palsy Patient is a functional quadriplegic and required total care while an inpatient. On the first night of admission patient was initially transitioned to warfarin and therapeutic dose of Lovenox however when it was determined that this was not a failure of Eliquis, he was restarted on Eliquis. Allergies: Coded Allergies: Penicillins (Intermediate, RASH 04/15/16) Disposition Summary Disposition Principal Diagnosis: RLE swelling Additional Diagnosis: Chronic DVTs, HTN, HLD, supranuclear palsy, functional quadriplegia Discharge Disposition: home health services Discharge Instructions General Discharge Information Code Status: Do Not Resucitate/Intubat Patient's Diet: Heart healthy, Puree solids, [place] liquids Patient's Activity: as tolderated Follow-Up Instructions/Appts: Please follow up with your primary care doctor within 1-2 weeks. Medications at Discharge Discharge Medications: Continue taking these medications: Silodosin (Rapaflo) 8 MG CAPSULE 1 Capsule ORAL AT BEDTIME Comments: NOT GIVEN Metoprolol Succinate (Metoprolol Succinate) 25 MG TAB 0.5 Tablet ORAL TWICE DAILY Days = 30 Comments: Last Taken: 10/22/17 Time: 10:17 AM Carbidopa/Levodopa (Sinemet 25-100 MG Tablet) 1 EACH TABLET 0.5 Tablet ORAL 4 TIMES A DAY Comments: Last Taken: 10/22/17 Time: 10:18 AM Solifenacin Succinate (Vesicare) 5 MG TABLET 1 Tablet ORAL AT BEDTIME Qty = 90 Comments: NOT GIVEN DITROPAN GIVEN Apixaban (Eliquis) 2.5 MG TABLET 1 Tablet ORAL TWICE DAILY Qty = 180 Risperidone (Risperidone) 0.5 MG TABLET 1 Tablet ORAL Every night Qty = 60 Comments: Last Taken:10/21/17 Time:23:57 PM Copies To: Norman Nick MD
== END 2017-10-22 13:26 | disposition home health service (06) | DRG 299 ==
LOC: ERH 17:55 → ERHI 22:35 → 2NB 22:35 → ENRESERV 10-22 00:22 → 2NB 10-22 01:34 → ENPENDDIS 10-22 13:14 → 2NB 10-22 13:26
PROVIDERS: Emergency Medicine; Internal Medicine Hematology & Oncology
DX: I82.511 Chronic embolism and thrombosis of right femoral vein (principal); R53.2 Functional quadriplegia; G23.1 Progressive supranuclear ophthalmoplegia [Steele-Richardson-Olszewski]; G20 Parkinson's disease; I48.91 Unspecified atrial fibrillation; F02.80 Dementia in other diseases classified elsewhere, unspecified severity, without behavioral disturbance, psychotic disturbance, mood disturbance, and anxiety; R13.10 Dysphagia, unspecified; E78.5 Hyperlipidemia, unspecified; I10 Essential (primary) hypertension; Z95.828 Presence of other vascular implants and grafts; Z79.01 Long term (current) use of anticoagulants; Z66 Do not resuscitate; Z95.0 Presence of cardiac pacemaker; Z88.0 Allergy status to penicillin; R32 Unspecified urinary incontinence; Z87.440 Personal history of urinary (tract) infections; Z82.49 Family history of ischemic heart disease and other diseases of the circulatory system; Z84.89 Family history of other specified conditions; N40.1 Benign prostatic hyperplasia with lower urinary tract symptoms; Z74.01 Bed confinement status
CPT/HCPCS: ERO; 36592; 74018; 82436; 93005; 93010; 96372; J1650

== ENCOUNTER → 2018-04-14 | Day surgery (SDC) | payer OTHER ==
[~2018-04-14] VITALS: Ht 172.7 cm; Wt 68.0 kg
[~2018-04-14] MED LIST changes: +RISPERIDONE0.5 M1 PO
--- NOTE | 2018-04-14 19:32 | Operative Report ---
Operative/Inv Procedure Report Surgery Date: 04/14/18 Name of Procedure: cystoscopy Pre-Operative Diagnosis: hematuria Post-Operative Diagnosis: same Estimated Blood Loss: scant Surgeon/Water Resources Project Manager: Bernardo Perez MD Anesthesia: moderate sedation, block Complications: none Operative/Procedure Note Note: The patient was taken to the operative room and placed on the OR table in supine position. Timeout was performed in order to confirm the patient's identity, procedure, anesthesia, antibiotics, as well as any other pertinent information. After adequate anesthesia, and antibiotics, the patient was then placed lithotomy stirrups draped and prepped in the usual surgical fashion. A 22 [place] cystoscope sheath with a 30 angle lens was inserted into the urethra and advanced into the bladder without difficulty. The bladder was noted to have the findings as discussed above. The bladder was then hydrodistended 2 with the irrigation fluid at 40 cm above the symphysis pubis. No evidence of tumor, increased petechiae, nor Hunner's ulceration was noted. Both ureteral orifices had clear reflux in their orthotopic position. No terminal bleed with drainage. Bladder capacity was normal. The bladder was then drained and the cystoscope was removed under direct visualization. The patient tolerated procedure well and was taken to recovery room in satisfactory condition. Findings: BPH-engorged mucosa: severe trabeculation of bladder with NO stone, NO tumor. Discharge Disposition: Same Day Admissions CC: Bernardo Perez MD
== END ==
LOC: STS 02:16
DX: R31.9 Hematuria, unspecified (principal); N32.89 Other specified disorders of bladder; N40.1 Benign prostatic hyperplasia with lower urinary tract symptoms; R33.8 Other retention of urine; I10 Essential (primary) hypertension; G20 Parkinson's disease; Z86.718 Personal history of other venous thrombosis and embolism; Z79.01 Long term (current) use of anticoagulants
CPT/HCPCS: J1580; J2250

== ENCOUNTER 2018-05-11 19:50 | Emergency (ER) | payer OTHER ==
[~2018-05-11] VITALS: Ht 177.8 cm; Wt 64.9 kg
[~2018-05-11 19:50] MED LIST changes: +FINASTERIDE5 M1 PO; +KEFLEX500 M1 PO; +PYRIDIUM100 M1 PO
[2018-05-11 20:50] LABS: ABSOLUTE BASOPHIL COUNT 0 /CUMM (0.0-0.2); ABSOLUTE EOSINOPHIL COUNT 0.2 /CUMM (0.0-0.7); ABSOLUTE GRANULOCYTE CT 3.5 /CUMM (1.4-6.5); ABSOLUTE LYMPH COUNT 1.3 /CUMM (1.2-3.4); ABSOLUTE MONOCYTE COUNT 0.3 /CUMM (0.10-0.60); BASOPHIL % 0.6 % (0.0-2.0); GRANULOCYTE % 65.9 % (42.2-75.2); HEMATOCRIT 38.5 % (42-52); MEAN PLATELET VOLUME 6.8 FL (7.4-10.4); PLATELET COUNT 209 /CUMM (130-400); RBC DISTRIBUTION WIDTH 14.1 % (11.5-14.5); RED BLOOD CELL CT 4.09 /CUMM (4.70-6.10); WHITE BLOOD CELL COUNT 5.4 /CUMM (4.8-10.8)
--- NOTE | 2018-05-11 22:07 | ED GENERAL ADULT ---
History of Present Illness General Chief Complaint: General Adult Stated Complaint: UNABLE TO CATHETERIZE Source: family Exam Limitations: dementia, poor historian Vital Signs & Intake/Output Vital Signs & Intake/Output Vital Signs Date Time Temp Pulse Resp B/P B/P Pulse O2 O2 Flow FiO2 Mean Ox Delivery Rate 05/119 74 18 117/57 97 Room Air 05/11 2025 98.6 68 20 108/56 98 Room Air Allergies Coded Allergies: Penicillins (Intermediate, RASH 05/11/18) Reconcile Medications Apixaban (Eliquis) 2.5 MG TABLET 1 TAB PO BID BLOOD THINNER (Reported) Carbidopa/Levodopa (Sinemet 25-100 MG Tablet) 1 EACH TABLET 0.5 TAB PO FOUR TIMES A DAY SUPRANUCLEA PALSY (Reported) Cephalexin (Keflex) 500 MG CAPSULE 1 CAP PO BID uti Finasteride 5 MG TABLET 1 TAB PO DAILY URINARY Metoprolol Succinate 25 MG TAB 0.5 TAB PO BID HTN (Reported) Risperidone 0.5 MG TABLET 1 TAB PO QPM ANXIETY/SLEEP (Reported) Silodosin (Rapaflo) 8 MG CAPSULE 1 CAP PO AT BEDTIME INCONTINENCE (Reported) Solifenacin Succinate (Vesicare) 5 MG TABLET 1 TAB PO AT BEDTIME URINARY INCONTINENCE (Reported) Triage Note: PT BIBA FROM HOME AFTER VISITING NURSE WAS UNABLE TO STRAIGHT CATH PATIENT. PT IS BEDBOUND AND NONVERBAL. SPOUSE STATES HE HAS BEEN "IN DISTRESS" TODAY. BUT CURRENTLY PATIENT IS NOT IN RESPIRATORY DISTRESS. PT HAS NOT URINATED SINCE THIS MORNING. HX OF PARKINSONS Triage Nurses Notes Reviewed? yes HPI: This is an 87-year-old male with history of hypertension, A. fib on apixaban, dementia, Parkinson's, prostatic enlargement presenting to the emergency department with urinary retention since yesterday. Patient has been suffering from intermittent urinary retention for the past few weeks, had had an indwelling King placed with inability to void spontaneously following removal. Most recently, King was removed on Friday and since that time patient has been unable to void. Sari, visiting nurse attempted to straight cath but was unable to. Patient arrives with some discomfort, although nonverbal and unable to specify any specific complaints. Patient arrives with his who is his caring advocate (Max PENA,Juni) Past History Travel History Traveled to [place] past 21 day No Medical History Any Pertinent Medical History? see below for history Neurological: dementia EENT: NONE Cardiovascular: AFIB, CHF, hypertension, hyperlipidemia Respiratory: NONE Gastrointestinal: NONE Hepatic: NONE Renal: urinary incontinence Psychiatric: NONE Endocrine: NONE Blood Disorders: DVT, PE Cancer(s): NONE WRISTER/Reproductive: NONE History of MRSA: No History of VRE: No History of CDIFF: No Surgical History Surgical History: non-contributory Psychosocial History Who do you live with Spouse Services at Home Nursing What is your primary language Cymro Tobacco Use: Never used Family History Family History, If Any: FATHER (HEART ATTACK AT AGE 88). FH: Parkinson's disease MOTHER (HEART ATTACK AT AGE 94). FHx: uterine cancer BROTHER (PTOSIS). Asif's palsy Hx Contributory? No (Juni Santana MD) Review of Systems Review of Systems Constitutional: Reports: see HPI. Genitourinary: Reports: see HPI. All Other Systems: Reviewed and Negative (Juni Santana MD) Physical Exam Physical Exam General Appearance: well developed/nourished, no apparent distress, awake, anxious, thin Head: atraumatic, normal appearance Eyes: Bilateral: normal appearance. Ears, Nose, Throat: normal pharynx, normal ENT inspection Neck: supple, full range of motion Respiratory: no respiratory distress, lungs clear Cardiovascular: normal peripheral pulses Gastrointestinal: soft, non-tender Back: normal inspection, normal range of motion Neurologic/Psych: no motor/sensory deficits, awake, alert Comments: Notably male, no acute distress. Stone facies. Resting tremor. Core Measures ACS in differential dx? No CVA/TIA Diagnosis: No Sepsis Present: No Sepsis Focused Exam Completed? No (Juni Santana MD) Progress Differential Diagnoses I considered the following diagnoses in my evaluation of the patient: Urinary retention secondary to BPH. Some concern for obstructive uropathy, although very low concern for urinary tract infection given the patient is currently on treatment dose Keflex and has no fever, other infectious symptoms therefore will not send any further testing for urinary tract infection. Low suspicion for acute cardiopulmonary process or severe metabolic derangement at this time. Plan of Care: Orders Procedure Date/time Status King, Insertion/Removal/Asses 05/11 2029 Active CULTURE,URINE 05/11 2029 Active URINALYSIS 05/11 2029 Complete COMPREHENSIVE METABOLIC PANEL 05/11 2029 Complete CBC WITHOUT DIFFERENTIAL 05/11 2029 Complete Laboratory Tests 05/11/182226: Urinalysis LIGHT H, Urine Color WILBUR, Urine Clarity CLDY H, Urine pH 5.0, Ur Specific [place] >= 1.030, Urine Protein >=300 H, Urine Ketones TRACE H, Urine Nitrite POS H, Urine Bilirubin NEG, Urine Urobilinogen 4.0 H, Ur Leukocyte Esterase NEG, Ur Microscopic SEDIMENT EXAMINED, Urine RBC 25-50 H, Urine WBC RARE, Ur Epithelial Cells RARE, Urine Bacteria MOD H, Urine Hemoglobin LARGE H , Urine Glucose 100 H 05/11/182041: Anion Gap 4 L, Estimated GFR > 60, BUN/Creatinine Ratio 24.3, Glucose 109 H, Calcium 8.9, Total Bilirubin 0.5, AST 21, ALT 21, Alkaline Phosphatase 46, Total Protein 6.3, Albumin 3.2 L, Globulin 3.1, Albumin/Globulin Ratio 1.0 L, CBC w Diff NO MAN DIFF REQ, RBC 4.09 L, MCV 94.0, MCH 31.0, MCHC 33.0, RDW 14.1, MPV 6.8 L, Gran % 65.9, Lymphocytes % 24.9, Monocytes % 5.6, Eosinophils % 3.0, Basophils % 0.6, Absolute Granulocytes 3.5, Absolute Lymphocytes 1.3, Absolute Monocytes 0.3, Absolute Eosinophils 0.2, Absolute Basophils 0 Microbiology 05/11 2227 URINE ROUT: Urine Culture - RECD Plan for urinalysis following King catheter placement, BNP, reassessment.\\\\ Labs are not suggestive of obstructive uropathy. King placement difficulty. Patient discharged home with leg bag. Instructions to follow-up with urology. Initial ED EKG: none (Juni Santana MD) Departure Departure Time of Disposition: 2246 Disposition: HOME OR SELF CARE Condition: Stable Clinical Impression Primary Impression: Urinary retention Referrals: Park PENA,Norman Ibarra (PCP/Family) Additional Instructions: Thank you for coming to [facility]. Please continue to take all medications as previously prescribed. Please return to the emergency department if child develops any fever, vomiting, or other concerning symptoms. Departure Forms: Customer Survey General Discharge Information (Juni Santana MD) Resident Co-Sign Statement Statement: ED Attending supervision documentation- [] I saw and evaluated the patient. I have also reviewed all the pertinent lab results and diagnostic results. I agree with the findings and the plan of care as documented in the Resident's documentation. [X] I have reviewed the ED Record and agree with the Resident's documentation. [] Additions or exceptions (if any) to the Resident's note and plan are summarized below: [] (Martha PENA,Derick Marks) Critical Care Note Critical Care Note Critical Care Time: non-applicable (Max PENA,Juni)
[2018-05-11 22:29] VITALS: BP 117/57
== END 2018-05-11 23:55 ==
LOC: ERH 19:50
PROVIDERS: Student in an Organized Health Care Education/Training Program
DX: R33.9 Retention of urine, unspecified (principal); I48.91 Unspecified atrial fibrillation; I50.9 Heart failure, unspecified; I10 Essential (primary) hypertension; Z79.01 Long term (current) use of anticoagulants
CPT/HCPCS: 81001; 87086